=== PATIENT | female | born 1970 | race Caucasian/White ===

== ENCOUNTER → 2018-02-08 07:43 | Outpatient (CLI) | payer OTHER, SELFPAY ==
--- NOTE | 2018-02-08 07:46 | BI_ITS ---
MAMMOGRAPHY - BILATERAL SCREENING REASON FOR EXAM: Female, 47 years old. Routine annual screening examination. PERTINENT HISTORY: Non-contributory. TECHNIQUE: Digital bilateral breast kyrie (3D mammographic acquisition) in the CC and MLO projections. 2-D mediolateral oblique (MLO) and craniocaudad (CC) views of both breasts were obtained. CAD: Full Field Digital Mammography with Computer Added Detection was performed. COMPARISON: Comparison is made with prior examination dated January 16, 2017 and December 31, 2015. FINDINGS: Breast Composition: The breasts are almost entirely fatty. There are no dominant masses or suspicious calcifications. No other significant abnormalities are identified. There has been no significant change since the prior study. BI/SCREENING MAMM (CAD), BILAT IMPRESSION: Stable bilateral screening mammogram. Yearly follow-up mammogram recommended. (A) ASSESSMENT CATEGORY: BIRADS Category 1: Negative. A letter regarding these results will be sent to the patient by the facility within 30 days. Approximately 10% of breast cancers are not detected by mammography. A normal mammogram should not delay biopsy of a clinically suspicious abnormality. [id number] Electronically Signed: Ck Peacock MD at 10:05 EDT Tel [phone], Service support ,
== END ==
PROVIDERS: Family Provider Family Medicine; PCP Family Medicine; Visit Provider Obstetrics & Gynecology
DX: Z12.31 Encounter for screening mammogram for malignant neoplasm of breast (principal)
CPT/HCPCS: 77063; 77067

== ENCOUNTER → 2018-03-10 22:30 | Outpatient (CLI) | payer OTHER, SELFPAY | PROVIDERS: Family Provider Family Medicine; PCP Family Medicine; Visit Provider Clinical Nurse Specialist Acute Care | DX: G47.33 Obstructive sleep apnea (adult) (pediatric) (principal) | CPT/HCPCS: 95811 ==

== ENCOUNTER 2018-03-22 06:44 | Inpatient (IN) | payer OTHER, SELFPAY ==
--- NOTE | 2018-03-17 10:30 | EKG12_ITS ---
Test Reason : PRE-OP Blood Pressure : / mmHG Vent. Rate : 066 BPM Atrial Rate : 066 BPM P-R Int : 140 ms QRS Dur : 086 ms QT Int : 422 ms P-R-T Axes : 057 017 026 degrees QTc Int : 442 ms Normal sinus rhythm Normal ECG Confirmed by FREDERIC MOELLER, JAYA ([id number]), visual effects editor KEREN DE SOUZA ([id number]) on 03/19/2018 1:34:17 PM Referred By: Luis Steen Confirmed By:JAYA DE LA GARZA MD
[2018-03-17 10:58] LABS: Hematocrit 36.7 % (37-47); Hemoglobin 12.2 g/dl (12.0-15.0); Mean Corp Hgb Conc 33.2 g/gl (32-36); Mean Corpuscular Hgb 30.6 pg (27.0-32.0); Mean Platelet Vol. 11.1 fl (6.2-12.0); Platelet Count 289 K/mm3 (150-450); RBC Distribution Width CV 12.7 % (11.6-14.6); Red Blood Count 3.99 M/mm3 (4.2-5.4); Scan Indicated on CBC? Y/N NO; White Blood Count 8.2 K/mm3 (4.4-11.0)
[2018-03-17 11:21] LABS: Anion Gap 7 (5-15); BUN 13 mg/dL (7-18); BUN/Creat Ratio 17.1 RATIO (10-20); Calcium,Total 9.2 mg/dL (8.5-10.1); Chloride 107 mmol/L (98-107); Creatinine, Serum 0.76 mg/dL (0.55-1.02); EST Glomerular Filtration Rate 87 mL/min (>60); Est Glom Filt Rate - Afr Amer 106 mL/min (>60); Glucose 93 mg/dL (74-106); Potassium 4.3 mmol/L (3.5-5.1); Sodium Level 141 mmol/L (136-145)
[2018-03-17 11:25] LABS: Pregnancy, Serum, hCG Quali. NEGATIVE Negative (0-9 Nonpreg)
--- NOTE | 2018-03-21 16:20 | HP.PCM_ITS ---
History and Physical Date of Admission: 03/22/18 Surgical History and Physical Ami Segundo, a 47 year old female 3 0 0 0 3, presents for BRIE/BSO on March 22, 2018 at 8:30. -- Menorrhagia -- Is really tired of this bleeding. Adds she is having a lot of cramping with her bleeding lately and more pain/discomfort on the LLQ. Heavy Prolonged Bleeding which began years ago. Ami claims it started gradually It occurs intermittently. It is located in the vagina.; It is located in the lower abdomen. Ami characterizes the quality cramping.; Ami characterizes the quality clots. Severity is moderate and not improving; Severity is D and C did not help; Additional comments are: D and C late 2015 benign results; small anterior cervix unable to remove uterus vaginally.; Additional comments are: meds not helpful. Prior . MEDICATIONS HISTORY: Current medications prescribed by our practice are: 1. Provera 10 mg tablet, One pill by mouth once a day for 10 days monthly to start menses Patient is also takin. buspirone 10 mg tablet, One pill by mouth three times a day prn 2. Celexa 20 mg tablet, one and a half tabs daily 3. lisinopril 10 mg tablet, One pill by mouth once a day ALLERGIES: NKA Infections - Chicken pox Illnesses - SVT and had heart ablation done 2005 per Varun Accidents - no injuries of consequence Hospitalizations - Childbirth and see surgery Review of Systems: GENERAL - Denies fever, or chills SKIN - Denies skin changes EYES - Denies visual changes EARS - Denies difficulty hearing NOSE - Denies nasal congestion or bleeding MOUTH - Denies sore throat or difficulty swallowing NECK - Denies pain or swelling RESPIRATORY - Denies shortness of breath or wheezing CARDIOVASCULAR - Denies palpitations or chest pain GASTROINTESTINAL - Denies nausea, vomiting, diarrhea, constipation GENITOURINARY - Denies dysuria, frequency of urination, incontinence of urine MUSCULOSKELETAL - Denies joint or muscle pain NEUROLOGICAL - Denies localized numbness or weakness PSYCHIATRIC - Denies depression or anxiety ENDOCRINE - Denies heat or cold intolerance, weight loss or gain HEMATO-IMMUNOLOGIC - Denies excessive bleeding with cuts SOCIAL HISTORY: Alcohol Use - drinks occasionally Smoking - used to smoke but quit and July 2000 Diet - no special diet Lifestyle - moderate stress lifestyle and Exercise - walking Seat Belt Use - always Employer - [employer] Job Description - Work with [employer] s Illicit Drug Use - denies use of street drugs Sexual Activity - Residence - owns a home Place of - Recluse Hours Worked - 40 + Spouse-Sig Other Name - Carroll Spouse-Sig Other Occupation - [employer] Children Name(s) - Jeannette 9, Tenisha 1, Sameer Control - NONE FAMILY HISTORY: Paternal history of Heart Disease. Mother: , Hypertension and Stroke. Maternal Grandmother: adult onset diabetes, diet controlled. MENSTRUAL HISTORY: LMP Known?- YesAmount/Duration - 7 to 10 days, Regularity - heavy, Frequency - monthly days, LMP - 03/06/18, Age Onset Menarche - 14 PAST PREGNANCIES: Total Pregnancies - 3; Full Term Pregnancies - 3; Premature - 0; Abortions, Induced - 0; Abortions, Spontaneous - 0; Ectopics - 0; Multiple Births - 0; Living Children - 3 SURGICAL HISTORY: 1. GALLBLADDER, 1995 ; - 2. , 1993 ; - 3. 11/18/2001 ; Luis Steen M.D. - REPEAT 4. heart cath 2005 ; Dr Farr - 5. 08/04/2003 repeat ; Luis Steen M.D. - 6. 12/24/2011 Lt foot- Plantar Fasciitis ; - 7. 02/04/2016 Hysteroscopy, D and C ; Luis Steen M.D. - PHYSICAL EXAM BP- 136/84 Sitting, Right arm, large cuff Weight- 281.25711 lbs Height- 61 inch BMI:53.21 CONSTITUTIONAL - NAD, well nourished, and well developed SKIN - No rash, lesions, or ulcers HEENT - Normocephalic, PERRLA, EOMI NECK - No nodes, no nuchal rigidity and thyroid normal size and texture LYMPH NODES - Palpation of lymph nodes in neck and groins within normal limits LUNGS - CTA x2 without wheezes, crackles or rales CARDIAC - Regular rate and rhythm without rubs, murmurs, or gallops BREAST - No dominant masses, no tenderness, no axillary adenopathy, no nipple discharge, no skin changes ABDOMEN - Without hepatosplenomegaly, distention, masses, rebound, or guarding; normal bowel sounds; no hernias EXTREMITIES - No edema or calf tenderness NEUROLOGICAL - Cranial nerves II-XII grossly intact PSYCHIATRIC - A and O to time, place, person, mood and affect External Genital Vagina - non-tender without lesions Urethra/Urethral Meatus - non-tender Bladder - non-tender Vagina - redundant vaginal magana. Cervix - without cervical motion tenderness and has normal size and features without evident lesions Uterus - non-diagnostic, limited by abdominal obesity Adnexa - non-diagnostic, limited by abdominal obesity ASSESSMENT/PLAN: Menorrhagia Unresponsive to medical or minor surgical management. Unable to remove via vaginal hysterectomy or perform ablation due to cervical size and location and mobility. Plan to proceed with BRIE/BSO. Discussed RBAs and all questions answered.
[2018-03-22] VITALS (12 sets, daily range): BP systolic 133–162; BP diastolic 67–86; PULSE 60–85; RESP 16–20; TEMP 36.6–37.3; O2SAT 94–100; BMI 51.5; BMI 51.4
--- NOTE | 2018-03-22 | IMM_PTH ---
PATIENT: CARLI MENENDEZ LOC: MS2 U#:[id number] AGE/SX: 47/F ROOM: [facility] [place] RE03/22/[address]: Dr. Luis Steen MD : 1970 BED: 1 DIS: 03/24/2018 SPEC #: [id number] RECD: 03/23/18 13:32 STATUS: JOSIANE REQ #: [id number] NANCY: 03/22/18 00:[address]: Luis Steen DEPT: IMMUNOHISTOCHEMISTRY RECD BY: Brie Klein ENTERED: 03/23/18 13:35 SP TYPE: IMMUNO OTHR DR: Candelaria Rodriguez, [employer] CONTRACTOR-C Tissues: [facility] TISSUE Procedures: Synapto (add) CD56 (add) CHROMO (add) CK20 (add) CK8 (add) KI-67 (add) CK7 (initial) PHYSICIAN & INSTITUTION [place] [id number] SPECIMEN INFORMATION: Tissue Source: Daniel Howell Clinical Info: Menorrhagia Specimen Number: [id number] B1 CPT code: 44689, 71204 x6 METHODOLOGY: Deparaffinized sections of prefer/formalin-fixed tissue or PAP/DQ stained slides are incubated with monoclonal/polyclonal antibodies/oligonucleotide probes. Localization is made via biotin free immunoperoxidase method. Appropriate controls are performed and reacted as expected. Results on target cell population are indicated in the following table: RESULTS: ANTIBODY / CLONE RESULT Block B1 CK7 (OV-TL12/30) negative CK8 (58ouiyG15) positive CK20 (KS20.8) negative CD56 (123C3.D5) positive Chromo (LK2H10) positive Synapto (polyclonal) positive Ki-67 (30-9) 0% These tests were developed and their performance characteristics determined by [facility]. They may not have been cleared or approved by the U.S. Food and Drug Administration. The FDA has determined that such clearance or approval is not necessary. INTERPRETATION: Jenn Lynda: Well differentiated neuroendocrine tumor, carcinoid tumor. SJ:adrian 03/24/18 Case has been reviewed in consultation with Dr. Pedraza who concurs with the above diagnosis. IDC:WILLIE
--- NOTE | 2018-03-22 | HYST_PTH ---
PATIENT: CARLI MENENDEZ LOC: MS2 U#:[id number] AGE/SX: 47/F [place] [facility] [place] RE03/22/[address]: Dr. Luis Steen MD : 1970 BED: 1 DIS: 03/24/2018 SPEC #: [id number] RECD: 03/22/18 14:38 STATUS: JOSIANE RETam #: [id number] NANCY: 03/22/18 00:[address]: Luis Steen DEPT: SURGICAL PATHOLOGY RECD BY: Scott Apple ENTERED: 03/22/18 14:39 SP TYPE: HYSTERECT OTHR DR: SANDY Matt Tissues: A - Uterus, NOS B - FOREIGN BODY Procedures: Surgery Specimen Level V HEADER OPERATION: Total abdominal hysterectomy, bilateral salpingo-oophorectomy PRE-OP DIAGNOSIS: Menorrhagia TISSUE SUBMITTED: A - Uterus, bilateral fallopian tubes, bilateral ovaries, cervix, B - Fecalith MICROSCOPIC DIAGNOSIS A. Uterus, bilateral fallopian tubes and bilateral ovaries, total abdominal hysterectomy and bilateral salpingo-oophorectomy: Cervix - no pathologic diagnosis. See comment. Endometrium - proliferative endometrium. Myometrium - adenomyosis. Bilateral fallopian tubes - no pathologic diagnosis. Bilateral ovaries - physiologic corpus luteum and follicular cysts. Left paratubal cyst. B. Fecalith: Carcinoid tumor. See comment. Fragment of fallopian tubes, no pathologic diagnosis. A piece of adipose tissue, no pathologic diagnosis. SJ:adrian 03/23/18 COMMENT A. Ectocervical mucosa is not seen. B. Immunohistochemistry ([id number]) supports the above diagnosis. Grossly identified an elongated piece of tissue shows colonic mucosa and is consistent with portion of appendix. The carcinoid tumor involves this portion of the specimen and measures approximately 2.5 to 3.0 in greatest length. The tumor involves the full thickness of appendix and obliterating the lumen and also extends into the periappendiceal tissue. No lymph node tissue is indentified in the adipose tissue submitted. Clinical correlation and appropriate follow up are necessary. This case is discussed with Dr. Steen on 03/23/18. This case is discussed with Dr. Lemon on 03/24/08. Case has been reviewed in consultation with Dr. Pedraza who concurs with the above diagnosis. IDC:AM MICROSCOPIC DESCRIPTION Slides are reviewed. GROSS DESCRIPTION A - Received in fixative is one container labeled with the patient's name and designated uterus, cervix, bilateral tubes and ovaries. The specimen consists of a hysterectomy specimen consisting of uterus, cervix, attached bilateral fallopian tubes and bilateral ovaries. The uterus with cervix weighs 135 gm and measures 11.5 x 7 x 6 cm. The serosal surface is onofre, glistening. Obvious ectocervical mucosa is not seen. The external os is slit-like in contour. The endocervical canal measures 5 cm in length and the endocervical mucosa is onofre, glistening and unremarkable. The triangular endometrial cavity measures 5.5 cm in length and up to 3.5 cm in width. The endometrium is congested without any mass lesion and measures 0.1 cm in thickness. Sections of the myometrial wall do not reveal any mass lesion and measures up to 3 cm in thickness. The right fallopian tube measures up to 9.5 cm in length and 0.7 cm in diameter. Focal tubo-ovarian adhesions are noted. The fimbrial end is identified. The soft to cystic right ovary measures 4 x 3 x 3 cm. Sections reveal a solid, onofre-yellowish area measuring 2.5 x 2 x 2.5 cm. A hemorrhagic cyst is also noted measuring 2 cm in greatest dimension. A few cysts are also present filled with clear fluid. The left fallopian tube measures 7 cm in length and up to 0.6 cm in diameter. The fimbrial end is identified. Tubo-ovarian adhesions are not seen. Sections reveal unremarkable cut surfaces. A paratubal cyst is noted measuring 0.5 cm in greatest dimension. The soft to cystic left ovary measures 3 x 3 x 2.5 cm. Sections reveal a cyst filled with clear fluid measuring 2 cm in greatest dimension. A focal onofre-yellowish area is also noted measuring 3 cm in greatest dimension. Multiple corpora lesions are noted in this area. Bridal Sales Consultant sections are submitted in 12 cassettes as follows: 1 - anterior cervix, 2 - posterior cervix, 3 & 4 - anterior uterine wall, 5 & 6 - posterior uterine wall, 7 - right fallopian tube and ovary, 8 & 9 - more sections of right ovary, 10 - left fallopian tube, 11 & 12 - left ovary. B - Received in fixative is one container labeled with the patient's name and designated fecalith. The specimen consists of an elongated piece of onofre soft tissue measuring 4 x 1 x 1 cm. Sections reveal yellowish cut surfaces. Also present in the container are two pieces of onofre-pink soft tissue measuring in aggregate 4.5 x 2 x 1 cm. Sections do not reveal any mass lesion. The entire specimen is submitted in three cassettes. Cassette 1 contains the elongated piece of tissue. / SJ:adrian 03/22/18 TC:1 CPT: 17461 x1, 83310
[2018-03-22 07:12] LABS: Internal QC Validated? YES +Cl - CLEAR BKGD; Pregnancy, Urine Negative Negative
--- NOTE | 2018-03-22 08:47 | PCM.OP.BLANK ---
Operative Report Date of Procedure: 03/22/18 Surgeon: Luis Steen MD, [facility] Associate Product Integrity Engineer: HALLE Esparza Anesthesia: Sarahi Bee MD; Tomy Cutler CRNA Type of anesthesia: General endotracheal Pre-operative Diagnosis: Menorrhagia, Unfavorable Pelvis for Vaginal Hysterectomy Post-operative Diagnosis: Menorrhagia, Unfavorable Pelvis for Vaginal Hysterectomy, Adhesions Procedure: Total Abdominal Hysterectomy, Bilateral Salpingo-Oophorectomy; Lysis of Adhesions Findings: 8 cm cm uterus with normal appearing fallopian tubes and ovaries; dense adhesions of uterus to anterior abdominal wall, dense adhesions of omentum to right pelvic sidewall and anterior abdominal wall, 2 cm omental fecalith (removed). Indications: This is a 47-year-old patient who his been having problems with extremely heavy periods. The patient's cervix is extremely small and high in the vagina with D&C in the past extremely difficult. Robotic surgery likely not possible. Given this the patient desires that we proceed with the above procedure. She has been counseled regarding the risk and indications of this procedure including the possibility of bleeding, infection, and injury to surrounding structures such as bowel bladder. All questions were answered. Procedure: Patient was taken to the operating room where after induction of general anesthesia she was prepped and draped in the usual sterile fashion. A Thomson catheter was placed. The abdomen was entered through a Pfannenstiel incision and peritoneal cavity was entered bluntly. Dense omental adhesions were encountered. [place] retractor was placed. Round ligaments were identified and ligated with 0 Vicryl suture. Infundibulopelvic ligaments were ligated x2. A bladder flap was developed with extensive adhesiolysis performed and progressive bites were then taken down on either side of the uterine cervix ligating each pedicle with 0 Vicryl suture. Final bites across the vaginal cuff incorporated the uterosacral ligaments into the vaginal cuff using 0 Vicryl suture and a single [id number] suture was placed across the vaginal cuff. Vaginal cuff and pelvic sidewall pedicles were oversewn where necessary to achieve hemostasis. Clear yellow urine was noted. Retractor was removed and omental adhesions were taken down ligating where necessary with 0 Vicryl suture. Retractor was replaced and pelvis was copiously irrigated with saline. FloSeal was placed across the anterior vaginal cuff to help with postoperative hemostasis due to some oozing in this area. Danay retractor was again removed and rectus abdominis muscles were reapproximated in the midline with interrupted 0 Vicryl suture. 0 PDS loop suture was used to close the fascia in a running fashion and subcutaneous tissue was copiously irrigated with saline solution before closing with 3-0 Vicryl suture. 3-0 Monocryl suture was then used in running fashion to reapproximate skin edges area and Steri-Strips placed across the incision. Patient tolerated the procedure well was taken to recovery room in satisfactory condition; sponge instrument and needle counts were all reportedly correct. Estimated blood loss for the case was less than 100 cc. Cefotan 3 g IV was given prior to beginning the operative procedure. There were no apparent complications of the surgery. Specimen to pathology was uterus and bilateral fallopian tubes and ovaries; fecalith.
--- NOTE | 2018-03-22 08:50 | OP.PCM_ITS ---
Operative Report Date of Procedure: 03/22/18 Surgeon: Luis Steen MD, [facility] Commercial Relationship Manager: HALLE Esparza Anesthesia: Sarahi Bee MD; Tomy Cutler CRNA Type of anesthesia: General endotracheal Pre-operative Diagnosis: Menorrhagia, Unfavorable Pelvis for Vaginal Hysterectomy Post-operative Diagnosis: Menorrhagia, Unfavorable Pelvis for Vaginal Hysterectomy, Adhesions Procedure: Total Abdominal Hysterectomy, Bilateral Salpingo-Oophorectomy; Lysis of Adhesions Findings: 8 cm cm uterus with normal appearing fallopian tubes and ovaries; dense adhesions of uterus to anterior abdominal wall, dense adhesions of omentum to right pelvic sidewall and anterior abdominal wall, 2 cm omental fecalith (removed). Indications: This is a 47-year-old patient who his been having problems with extremely heavy periods. The patient's cervix is extremely small and high in the vagina with D&C in the past extremely difficult. Robotic surgery likely not possible. Given this the patient desires that we proceed with the above procedure. She has been counseled regarding the risk and indications of this procedure including the possibility of bleeding, infection, and injury to surrounding structures such as bowel bladder. All questions were answered. Procedure: Patient was taken to the operating room where after induction of gen eral anesthesia she was prepped and draped in the usual sterile fashion. A Thomson catheter was placed. The abdomen was entered through a Pfannenstiel incision and peritoneal cavity was entered bluntly. Dense omental adhesions were encountered. Danay retractor was placed. Round ligaments were identified and ligated with 0 Vicryl suture. Infundibulopelvic ligaments were ligated x2. A bladder flap was developed with extensive adhesiolysis performed and progressive bites were then taken down on either side of the uterine cervix ligating each pedicle with 0 Vicryl suture. Final bites across the vaginal cuff incorporated the uterosacral ligaments into the vaginal cuff using 0 Vicryl suture and a single [id number] suture was placed across the vaginal cuff. Vaginal cuff and pelvic sidewall pedicles were oversewn where necessary to achieve hemostasis. Clear yellow urine was noted. Retractor was removed and omental adhesions were taken down ligating where necessary with 0 Vicryl suture. Retractor was replaced and pelvis was copiously irrigated with saline. FloSeal was placed across the anterior vaginal cuff to help with postoperative hemostasis due to some oozing in this area. [place] retractor was again removed and rectus abdominis muscles were reapproximated in the midline with interrupted 0 Vicryl suture. 0 PDS loop suture was used to close the fascia in a running fashion and subcutaneous tissue was copiously irrigated with saline solution before closing with 3-0 Vicryl suture. 3-0 Monocryl suture was then used in running fashion to reapproximate skin edges area and Steri-Strips placed across the incision. Patient tolerated the procedure well was taken to recovery room in satisfactory condition; sponge instrument and needle counts were all reportedly correct. Estimated blood loss for the case was less than 100 cc. Cefotan 3 g IV was given prior to beginning the operative procedure. There were no apparent complications of the surgery. Specimen to pathology was uterus and bilateral fallopian tubes and ovaries; fecalith.
--- NOTE | 2018-03-22 08:50 | PCM.DC.AHY ---
Discharge Diet: No Restrictions Discharge Activity: Return to Normal Activity - do what you feel comfortable, but do not over do it. You may climb stairs, just use caution and hold the railing., May Not Drive - for a few days or while taking narcotic pain medications., May Shower, May Take a Tub Bath May resume sexual activity in: 6 weeks - nothing in the vagina. Lifting Restrictions: 25 pounds for 6 weeks. Call your doctor if your incision/area has: Continuous Slow Oozing, Sudden Increased Bleeding, Increased Pain/ Swelling, Increased Redness, Foul Smelling Discharge Call your doctor if you observe: Fever of 101 or Higher, Inability to urinate, Inability to have a bowel movement, Using more than one pad per hour, - - Some vaginal bleeding may be noted for up to 4-8 weeks. Cleanse incision/area with: - - Let the soapy water run over your incision, rinse and pat dry. Additional Dressing/Incision Instructions:: The white strips (Steri Strips) on your incision will fall off on their own. Allergies/Adverse Reactions: Allergies No Known Allergies Allergy (Verified 03/15/18 11:05) Medications to take at Discharge Buspirone HCl [Buspar] 10 mg PO TID PRN PRN 12/21/15 Lisinopril 10 mg PO QHS 12/21/15 Citalopram Hydrobromide [Celexa] 30 mg PO QHS 03/15/18 Docusate Sodium [Colace] 100 mg PO BID PRN PRN #60 cap 03/22/18 Estradiol 1 mg PO DAILY #100 tab 03/22/18 Oxycodone [Oxyir] 5 mg PO Q6H PRN PRN 7 Days #20 tab 03/22/18 The following prescriptions were given: Oxycodone [Oxyir] 5 mg PO Q6H PRN PRN 7 Days #20 tab PRN Reason: Severe Pain (-03/03) Docusate Sodium [Colace] 100 mg PO BID PRN PRN #60 cap PRN Reason: Constipation Estradiol 1 mg PO DAILY #100 tab Orders to be completed after discharge: 12 Lead EKG [[facility]] Time Frame: 03/17/18, Location: None Selected Basic Metabolic Profile (BMP) Time Frame: 03/17/18, Location: Laboratory Primary Care Physician: Rodriguez,Candelaria, MEN'S LOCKER ROOM ATTENDANT-C [Primary Care Provider] - Test Results: Test results from this visit will be discussed in further detail at your follow-up appointment, if applicable. Please Follow Up With: Luis Steen MD - [phone] When: in 2 weeks, please call to make an appointment.
[2018-03-22] MEDS: Ketorolac 30 MG/ML Syringe IV ×3 (12:44→22:57)
[2018-03-22] MEDS: Ondansetron 4 MG/2 ML Vial IV ×2 (14:34→18:34)
[2018-03-22] MEDS: Lactated Ringers 1,000 ML 125 ML IV ×2 (14:44→22:57)
[2018-03-22] MEDS: HYDROmorphone 0.5 MG/0.5 ML SYRINGE IV (15:27)
[2018-03-22] MEDS: Estrogens,Conj. 0.625 MG Tablet PO (18:36)
[2018-03-22] MEDS: Enoxaparin 40 MG/0.4 ML Syringe SC (18:40)
[2018-03-22] MEDS: HYDROmorphone 1 MG/ML Syringe IV (19:58)
[2018-03-22] MEDS: Citalopram 10 MG Tablet 30 MG PO (22:57)
[2018-03-22] MEDS: Lisinopril 10 MG Tablet PO (22:58)
[2018-03-23] MEDS: HYDROmorphone 0.5 MG/0.5 ML SYRINGE IV (01:33)
[2018-03-23 03:49] VITALS: BP 120/50; PULSE 85; RESP 16; TEMP 37.1; O2SAT 98
[2018-03-23] MEDS: Ketorolac 30 MG/ML Syringe IV ×4 (05:47→23:56)
--- NOTE | 2018-03-23 05:54 | NURSING ---
Berto garcia @ 0553 on 03/23
[2018-03-23] MEDS: oxyCODONE 5 MG Tablet PO ×4 (07:19→20:58)
[2018-03-23 08:02] LABS: Hematocrit 26.2 % (37-47); Hemoglobin 8.6 g/dl (12.0-15.0); Mean Corp Hgb Conc 32.8 g/gl (32-36); Mean Corpuscular Hgb 30.9 pg (27.0-32.0); Mean Corpuscular Volume 94.2 fL (81-99); Mean Platelet Vol. 10.9 fl (6.2-12.0); Platelet Count 245 K/mm3 (150-450); RBC Distribution Width CV 12.6 % (11.6-14.6); RBC Distribution Width SD 41.2 fl (35.1-43.9); Red Blood Count 2.78 M/mm3 (4.2-5.4); White Blood Count 9.1 K/mm3 (4.4-11.0)
[2018-03-23 08:03] LABS: Scan Indicated on CBC? Y/N NO
[2018-03-23 08:25] LABS: Creatinine, Serum 0.81 mg/dL (0.55-1.02); EST Glomerular Filtration Rate 81 mL/min (>60); Est Glom Filt Rate - Afr Amer 98 mL/min (>60); Estimated Creatinine Clearance 69.37 ml/min
--- NOTE | 2018-03-23 08:40 | PCM.PN.OB ---
Subjective: Patient without complaints. Tolerating diet. Denies flatus. Pain well controlled. Wants to go home later today if possible. - Physical Exam Vital Signs AF, VSS Temp Pulse Resp BP Pulse Ox 98.8 F 85 16 120/50 L 98 03/23/18 03:49 03/23/18 03:49 03/23/18 03:49 03/23/18 03:49 03/23/18 03:49 Oxygen Flow Rate (L/min) 2 Oxygen Delivery Method Nasal Cannula Weight: 281 lb Body Mass Index (BMI) 51.4 Intake and Output for Last 24 Hours 03/21/18 03/22/18 03/23/18 23:59 23:59 23:59 Intake Total 3268 / 3268 1147 / 1147 Output Total 900 / 900 1150 / 1150 Balance 2368 / 2368 -3 / -3 Laboratory Tests Past 24 Hrs 03/23/18 03/23/18 07:30 07:30 WBC 9.1 RBC 2.78 L Hgb 8.6 L Hct 26.2 L MCV 94.2 MCH 30.9 MCHC 32.8 RDW 12.6 RDW Differential 41.2 Plt Count 245 MPV 10.9 Creatinine 0.81 Estim Creat Clear Calc 69.37 Est GFR (MDRD) Af Amer 98 Est GFR (MDRD) Non-Af 81 Wound is clean, dry, intact. Good urine output. Minimal to no vaginal bleeding. Creatinine okay. Hemoglobin okay. Medical Necessity - Tobacco Use Smoking Status: Former smoker Assessment/Plan Doing well postoperative day #1 status post BRIE/BSO. Home-going instructions given in anticipation of possible discharge later today. Otherwise, continuing present care.
[2018-03-23 09:18] VITALS: BP 108/47; PULSE 82; RESP 16; TEMP 37.2; O2SAT 93
[2018-03-23] MEDS: Acetaminophen 500 MG Tablet 1000 MG PO (09:37)
[2018-03-23] MEDS: Estrogens,Conj. 0.625 MG Tablet PO (09:39)
[2018-03-23] MEDS: 0.9% NaCl Peripheral Flush Adult/Peds IV ×3 (11:28→23:56)
[2018-03-23 15:14] VITALS: BP 124/61; PULSE 83; RESP 16; TEMP 37.2; O2SAT 94
[2018-03-23 20:37] VITALS: BP 121/61; PULSE 93; RESP 18; TEMP 36.8; O2SAT 96
[2018-03-23] MEDS: Lisinopril 10 MG Tablet PO (20:59)
[2018-03-23] MEDS: Citalopram 10 MG Tablet 30 MG PO (21:00)
[2018-03-24 03:20] VITALS: BP 109/59; PULSE 79; RESP 16; TEMP 36.8; O2SAT 97
[2018-03-24] MEDS: oxyCODONE 5 MG Tablet PO (03:26)
[2018-03-24 05:49] LABS: Absolute Lymphocyte Count 2.16 X10^3/ul (0.83-4.51); Absolute Neutrophil Count 5.6 X10^3/uL (2.0-7.7); Basophil# 0.03 X10^3/uL; Basophil% 0.3 % (0-1); Eosinophils% 1.1 % (0-5); Hematocrit 24.6 % (37-47); Hemoglobin 7.9 g/dl (12.0-15.0); Lymphocyte # 2.16 X10^3/ul (4.0); Lymphocyte % 24.1 % (19-41); Mean Corp Hgb Conc 32.1 g/gl (32-36); Mean Corpuscular Hgb 30.3 pg (27.0-32.0); Mean Corpuscular Volume 94.3 fL (81-99); Mean Platelet Vol. 10.8 fl (6.2-12.0); Monocyte% 11.1 % (0-10); Neutrophil # 5.63 X10^3/uL (2.7-7.7); Neutrophil % 62.7 % (47-70); Platelet Count 230 K/mm3 (150-450); RBC Distribution Width CV 12.8 % (11.6-14.6); RBC Distribution Width SD 42.4 fl (35.1-43.9); Red Blood Count 2.61 M/mm3 (4.2-5.4)
[2018-03-24] MEDS: Ketorolac 30 MG/ML Syringe IV (06:04)
[2018-03-24] MEDS: 0.9% NaCl Peripheral Flush Adult/Peds IV (06:04)
[2018-03-24 06:17] LABS: POSITIVE COUNT NO; POSITIVE DIFFERENTIAL NO; POSITIVE MORPHOLOGY NO
[2018-03-24 07:00] VITALS: O2SAT 97
--- NOTE | 2018-03-24 09:18 | PCM.PN.OB ---
Subjective: Patient without complaints. Tolerating diet well. Positive flatus. Dr. 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 She plans to see him in the office in 1-2 weeks for further plans on management. - Physical Exam Vital Signs AF, VSS Temp Pulse Resp BP Pulse Ox 98.3 F 79 16 109/59 L 97 03/24/18 03:20 03/24/18 03:20 03/24/18 03:20 03/24/18 03:20 03/24/18 07:00 Oxygen Flow Rate (L/min) 2 Oxygen Delivery Method Nasal Cannula Weight: 281 lb Body Mass Index (BMI) 51.4 Intake and Output for Last 24 Hours 03/22/18 03/23/18 03/24/18 23:59 23:59 23:59 Intake Total 3268 / 3268 3097 / 3097 440 / 440 Output Total 900 / 900 2400 / 2400 1450 / 1450 Balance 2368 / 2368 697 / 697 -1010 / -1010 Laboratory Tests Past 24 Hrs 03/24/18 05:15 WBC 9.0 RBC 2.61 L Hgb 7.9 L Hct 24.6 L MCV 94.3 MCH 30.3 MCHC 32.1 RDW 12.8 RDW Differential 42.4 Plt Count 230 MPV 10.8 Immature Gran % (Auto) 0.700 Neut % (Auto) 62.7 Lymph % (Auto) 24.1 [place] % (Auto) 11.1 H Eos % (Auto) 1.1 Baso % (Auto) 0.3 Absolute Neuts (auto) 5.6 Absolute Lymphs (auto) 2.16 Total Counted Not Reportable Wound is clean, dry, intact. Excellent urine output. Hemoglobin stable with diuresis. Medical Necessity - Tobacco Use Smoking Status: Former smoker Assessment/Plan Doing well postoperative day #2 status post BRIE/BSO for menorrhagia and incidental carcinoid tumor of appendix. Patient to follow-up with Dr. Lemon in 1-2 weeks and with our office in approximately 2 weeks for an incision check. Home-going instructions were given.
[2018-03-24 09:41] VITALS: BP 125/58; PULSE 70; RESP 16; TEMP 36.9; O2SAT 100
--- NOTE | 2018-03-24 10:00 | CASEMGMT ---
ANKUR CAMPBELL INITIAL ASSESSMENT D/C PLAN: Return home with support of . Face to Face with patient for initial transition planning/care coordination assessment. ANKUR CAMPBELL introduced self and role at [facility]. Care providers, pharmacy, and demographics verified. PCP: Candelaria Rodriguez NP Specialists: To F/U with Dr Lemon in 1-2 wks for carcinoid tumor of omental lesion Preferred Pharmacy: [facility] Insurance: [employer] Living Will/HPOA: Does not have either LW or HPOA. Declines further information. LNOK: Living Arrangements: Lives with . Transportation: Pt drives. DME: Denies currently using any DME. Just had sleep apnea testing done and states should be getting a Bipap in the next couple weeks. Declines needing supplemental O2 @ HS in the interim. HHC: No needs identified. CM to follow for any further discharge planning needs that may arise. Wolfgang MENAN ANKUR CAMPBELL
[2018-03-24] MEDS: Estrogens,Conj. 0.625 MG Tablet PO (10:28)
--- NOTE | 2018-03-24 15:40 | CON.PCM_ITS ---
Problem List (1) Carcinoid tumor of appendix Status: Acute Reason for Consult Date of Consultation: 03/24/18 History of Present Illness: The patient is a 47 year old F who recently underwent a total abdominal hysterectomy and bilateral salpingo-oophorectomy for menorrhagia. During the procedure the presumptive fecalith was removed. 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 It measured approximately 2.5 cm in its greatest diameter. She is currently recovering quite well tolerating a diet and her pain is improving. I have been consulted for further workup and evaluation of the carcinoid tumor of the appendix. Past Medical History Allergies No Known Allergies Allergy (Verified 03/15/18 11:05) Home Medications: Ambulatory Orders Medication Instructions Recorded Buspirone HCl [Buspar] 10 mg PO TID PRN PRN 12/21/15 Lisinopril 10 mg PO QHS 12/21/15 Citalopram Hydrobromide [Celexa] 30 mg PO QHS 03/15/18 Docusate Sodium [Colace] 100 mg PO BID PRN PRN #60 cap 03/22/18 Estradiol 1 mg PO DAILY #100 tab 03/22/18 Oxycodone [Oxyir] 5 mg PO Q6H PRN PRN 7 Days #20 tab 03/22/18 Smoking Status: Former smoker - *Family History Maternal History Items: No pertinent history Review of Systems Constitutional: Denies: Chills, Fever, Weight Change Cardiovascular: Denies: Chest Pain, Chest Pressure, Chest Tightness, Palpitations Respiratory: Denies: Cough, Hemoptysis, Shortness of breath at rest, Shortness of breath upon exertion, Wheezing Gastrointestinal: Denies: Abdominal Pain, Constipation, Diarrhea, Hematemesis, Nausea, Melena, Vomiting - Physical Exam Lungs: Clear to auscultation Cardiovascular: Regular rate, Regular Rhythm, No murmurs Abdomen: Bowel Sounds Present, Soft, Non Tender, Non-Distended Vital Signs Temp Pulse Resp BP Pulse Ox 98.4 F 70 16 125/58 H 100 03/24/18 09:41 03/24/18 09:41 03/24/18 09:41 03/24/18 09:41 03/24/18 09:41 Oxygen Flow Rate (L/min) 2 Oxygen Delivery Method Room Air Weight: 281 lb Body Mass Index (BMI) 51.4 Intake and Output for Last 24 Hours 03/22/18 03/23/18 03/24/18 23:59 23:59 23:59 Intake Total 3268 / 3268 3097 / 3097 440 / 440 Output Total 900 / 900 2400 / 2400 1450 / 1450 Balance 2368 / 2368 697 / 697 -1010 / -1010 Laboratory Tests Past 24 Hrs 03/24/18 05:15 WBC 9.0 RBC 2.61 L Hgb 7.9 L Hct 24.6 L MCV 94.3 MCH 30.3 MCHC 32.1 RDW 12.8 RDW Differential 42.4 Plt Count 230 MPV 10.8 Immature Gran % (Auto) 0.700 Neut % (Auto) 62.7 Lymph % (Auto) 24.1 [place] % (Auto) 11.1 H Eos % (Auto) 1.1 Baso % (Auto) 0.3 Absolute Neuts (auto) 5.6 Absolute Lymphs (auto) 2.16 Total Counted Not Reportable Assessment/Plan All Active Problems Carcinoid tumor of appendix (Acute) With this finding of the carcinoid tumor of the appendix the patient is going to have to undergo a CAT scan of her chest abdomen and pelvis at some time. However given all the postoperative changes I do not believe that obtaining this at this admission is probably a good thing. In addition she will more than likely undergo an upper and lower endoscopy. Given the fact that the size of t his was larger than a centimeter this patient at some point is more than likely going to need to undergo a right hemicolectomy. However prior to any surgery I think the workup needs to be more complete. In addition I am more than likely going to probably consult Dr. Lacey from [facility] to see how much of the workup he would like me to do down here prior to me sending her up there for her definitive surgery. I believe this workup can easily be done as an outpatient and I will gladly see this patient 1 week after her discharge.
== END 2018-03-24 10:38 | disposition home or self-care (01) | DRG 742 ==
PROVIDERS: Anesthesiology; Admitting Provider Obstetrics & Gynecology; Family Provider Family Medicine; PCP Family Medicine; Referring Provider Obstetrics & Gynecology; Visit Provider Obstetrics & Gynecology
PROC: 0UT90ZZ Resection of Uterus, Open Approach (ICD-10-PCS; CPT 58150; principal; 2018-03-22 08:10)
DX: N92.0 Excessive and frequent menstruation with regular cycle (principal); C7A.020 Malignant carcinoid tumor of the appendix; N73.6 Female pelvic peritoneal adhesions (postinfective); Z87.891 Personal history of nicotine dependence
CPT/HCPCS: 36415; 80048; 81025; 82565; 84703; 85025; 85027; 86850; 86900; 88300; 88307; 88341; 88342; 93005; J7120; A4216; J2405

== ENCOUNTER 2018-04-14 06:28 | Day surgery (SDC) | payer OTHER, SELFPAY ==
[2018-04-14] VITALS (7 sets, daily range): BP systolic 103–133; BP diastolic 62–81; PULSE 75–86; RESP 16; TEMP 36.5–36.9; O2SAT 94–98; BMI 49.2
--- NOTE | 2018-04-14 | EGD_PTH ---
PATIENT: CARLI MENENDEZ LOC: EN U#:[id number] AGE/SX: 47/F ROOM: RE04/14/[address]: Dr. Kenny Lemon MD : 1970 BED: DIS: 04/14/2018 SPEC #: [id number] RECD: 04/14/18 11:05 STATUS: JOSIANE ADAM #: [id number] NANCY: 04/14/18 00:[address]: Kenny Lemon DEPT: SURGICAL PATHOLOGY RECD BY: Scott Apple ENTERED: 04/14/18 11:06 SP TYPE: EGD BIOPSY OTHR DR: Candelaria Rodriguez, PAN RECLAIM PROCESSOR-C Tissues: A - Gastric fundus B - Sigmoid colon biopsy Procedures: Surgery Specimen Level IV HEADER OPERATION: Colonoscopy, EGD ([facility]) PRE-OP DIAGNOSIS: Carcinoid tumor of appendix TISSUE SUBMITTED: A - Biopsy of fundic polyp, B - Biopsy of sigmoid colon MICROSCOPIC DIAGNOSIS A. Fundic polyp, biopsy: Consistent with fundic gland polyp. See comment. B. Sigmoid colon, biopsy: Fragments of colonic mucosa with a few lymphoid aggregate, favor benign, no pathologic diagnosis. See comment. SJ:rg 04/16/18 COMMENT A. Immunohistochemistry for Helicobacter pylori can be performed if clinically indicated. Please notify the Laboratory if it is needed. B. Immunohistochemistry ([id number]) supports the above diagnosis and negative for carcinoid tumor. Clinical correlation and appropriate follow up are necessary. Please make reference to previous specimen ([id number]) fecalith with diagnosis of carcinoid tumor. MICROSCOPIC DESCRIPTION Slides are reviewed. GROSS DESCRIPTION A - Received in fixative is one container labeled with the patient's name and designated biopsy of fundic polyp. The specimen consists of one irregular fragment of light onofre soft tissue that measures 0.3 x 0.2 x 0.1 cm. The specimen is totally submitted in one cassette. B - Received in fixative is one container labeled with the patient's name and designated biopsy of sigmoid colon. The specimen consists of two irregular fragments of light onofre soft tissue that in aggregate measure 0.8 x 0.6 x 0.1 cm. The specimen is totally submitted in one cassette. / SJ:rg 04/14/18 TC:5 CPT: 94452 x2 ADDENDUM ADDENDUM ADDENDUM ADDENDUM ADDENDUM ADDENDUM ADDENDUM ADDENDUM ADDENDUM ADDENDUM ADDENDUM ADDENDUM ADDENDUM 06/30/2018 14:58 ADDENDUM 06/30/2018 14:58 ADDENDUM 06/30/2018 14:58 ADDENDUM 06/30/2018 14:58 ADDENDUM 06/30/2018 14:58 This addendum is added to incorporate an outside pathology consultation report. The case was examined at [facility] (#[id number]) and the following diagnosis was rendered. A. Fundic polyp, biopsy: Fundic gland polyp. B. Colon, sigmoid biopsy: Colonic mucosa with mild lamina propria hyalinization, otherwise with no specific pathologic findings. Please see complete above mentioned consultation report in EMR
--- NOTE | 2018-04-14 | IMM_PTH ---
PATIENT: CARLI MENENDEZ LOC: EN U#:[id number] AGE/SX: 47/F ROOM: RE04/14/[address]: Dr. Kenny Lemon MD : 1970 BED: DIS: 04/14/2018 SPEC #: [id number] RECD: 04/16/18 14:44 STATUS: JOSIANE REQ #: [id number] NANCY: 04/14/18 00:[address]: Kenny Lemon DEPT: IMMUNOHISTOCHEMISTRY RECD BY: Brie Klein ENTERED: 04/16/18 14:45 SP TYPE: IMMUNO OTHR DR: Candelaria Rodriguez, COMPANY DOCTOR-C Tissues: B - Sigmoid colon biopsy Procedures: Synapto (add) CK8 (initial) CD45 (add) CD56 (add) CHROMO (add) PHYSICIAN & INSTITUTION [place] [address] SPECIMEN INFORMATION: Tissue Source: B - Biopsy of sigmoid colon Clinical Info: Carcinoid tumor of appendix Specimen Number: [id number] CPT code: 46688, 32788 x4 METHODOLOGY: Deparaffinized sections of prefer/formalin-fixed tissue or PAP/DQ stained slides are incubated with monoclonal/polyclonal antibodies/oligonucleotide probes. Localization is made via biotin free immunoperoxidase method. Appropriate controls are performed and reacted as expected. Results on target cell population are indicated in the following table: RESULTS: ANTIBODY / CLONE RESULT Block B CK8 (16gcohR62) negative CD45 (RP2/18) positive CD56 (123C3.D5) negative Synapto (polyclonal) negative Chromo (LK2H10) negative These tests were developed and their performance characteristics determined by [facility]. They may not have been cleared or approved by the U.S. Food and Drug Administration. The FDA has determined that such clearance or approval is not necessary. INTERPRETATION: B. Sigmoid colon, biopsy: Negative for carcinoid tumor. Lymphoid aggregates, favor benign. SJ:adrian 04/16/18
--- NOTE | 2018-04-14 07:59 | OP.ENDO_ITS ---
Patient Name: Michelle Raymond Procedure Date: 04/14/2018 7:30 AM Date of : 1970 Age: 47 Procedure: Upper GI endoscopy Indications: carcinoid appendix Providers: Kenny Lemon MD Referring MD: Kenny Lemon MD Medicines: See the Anesthesia note for documentation of the administered medications Patient Profile: This is a 47 year old female. Refer to note in patient chart for documentation of history and physical. Complications: No immediate complications. Procedure: Pre-Anesthesia Assessment: - Prior to the procedure, a History and Physical was performed, and patient medications and allergies were reviewed. The patient's tolerance of previous anesthesia was also reviewed. The risks and benefits of the procedure and the sedation options and risks were discussed with the patient. All questions were answered, and informed consent was obtained. Prior Anticoagulants: The patient has taken no previous anticoagulant or antiplatelet agents. ASA Grade Assessment: III - A patient with severe systemic disease. After reviewing the risks and benefits, the patient was deemed in satisfactory condition to undergo the procedure. After obtaining informed consent, the endoscope was passed under direct vision. Throughout the procedure, the patient's blood pressure, pulse, and oxygen saturations were monitored continuously. The gastroscope was introduced through the mouth, and advanced to the second part of duodenum. The upper GI endoscopy was accomplished without difficulty. The patient tolerated the procedure well. Scope In: 7:39:15 AM Scope Out: 7:42:59 AM Total Procedure Duration Time 0 hours 3 minutes 44 seconds Findings: The examined esophagus was normal. A few 4 mm sessile polyps with no bleeding and no stigmata of recent bleeding were found in the gastric antrum. The polyp was removed with a jumbo cold forceps. Resection and retrieval were complete. The examined duodenum was normal. Impression: - Normal esophagus. - A few gastric polyps. Resected and retrieved. - Normal examined duodenum. Recommendation: - Await pathology results. - Return to my office in 1 week. - Continue present medications. Procedure Code(s): --- Professional --- 69919, Esophagogastroduodenoscopy, flexible, transoral; with biopsy, single or multiple Diagnosis Code(s): --- Professional --- K31.7, Polyp of stomach and duodenum CPT copyright 2017 [employer]. All rights reserved. The codes documented in this report are preliminary and upon civil draftsman review may be revised to meet current compliance requirements. MD Kenny Bundy MD 04/14/2018 7:58:33 AM This report has been signed electronically. Number of Addenda: 0 Note Initiated On: 04/14/2018 7:30 AM
--- NOTE | 2018-04-14 08:04 | OP.ENDO_ITS ---
Patient Name: Michelle Raymond Procedure Date: 04/14/2018 7:44 AM Date of : 1970 Age: 47 Procedure: Colonoscopy Indications: Malignant carcinoid tumor of the appendix Providers: Kenny Lemon MD Referring MD: Kenny Lemon MD Medicines: See the Anesthesia note for documentation of the administered medications Patient Profile: This is a 47 year old female. Refer to note in patient chart for documentation of history and physical. Last Colonoscopy: none. The patient's first colonoscopy is today. Complications: No immediate complications. Procedure: Pre-Anesthesia Assessment: - Prior to the procedure, a History and Physical was performed, and patient medications and allergies were reviewed. The patient's tolerance of previous anesthesia was also reviewed. The risks and benefits of the procedure and the sedation options and risks were discussed with the patient. All questions were answered, and informed consent was obtained. Prior Anticoagulants: The patient has taken no previous anticoagulant or antiplatelet agents. ASA Grade Assessment: III - A patient with severe systemic disease. After reviewing the risks and benefits, the patient was deemed in satisfactory condition to undergo the procedure. - Prior to the procedure, a History and Physical was performed, and patient medications and allergies were reviewed. The patient's tolerance of previous anesthesia was also reviewed. The risks and benefits of the procedure and the sedation options and risks were discussed with the patient. All questions were answered, and informed consent was obtained. Prior Anticoagulants: The patient has taken no previous anticoagulant or antiplatelet agents. ASA Grade Assessment: III - A patient with severe systemic disease. After reviewing the risks and benefits, the patient was deemed in satisfactory condition to undergo the procedure. After I obtained informed consent, the scope was passed under direct vision. Throughout the procedure, the patient's blood pressure, pulse, and oxygen saturations were monitored continuously. The adult colonoscope was introduced through the anus with the intention of advancing to the cecum. The scope was advanced to the sigmoid colon before the procedure was aborted. Medications were given. The colonoscopy was aborted due to the extreme difficulty of the procedure. Withdrawing and reinserting the scope did not allow for the successful completion of the procedure. Scope In: 7:46:00 AM Scope Out: 7:52:50 AM Total Procedure Duration Time 0 hours 6 minutes 50 seconds Findings: A localized area of mildly friable (with contact bleeding) mucosa was found in the sigmoid colon. Biopsies were taken with a cold forceps for histology. The perianal and digital rectal examinations were normal. Pertinent negatives include no palpable rectal lesions. Impression: - The procedure was aborted due to the extreme difficulty of the procedure. When I got to the Sigmoid colon I hit a brick wall! - Friable (with contact bleeding) mucosa in the sigmoid colon. Biopsied. Recommendation: - Discharge patient to home [Means]. - Perform an air contrast barium enema in 1 day. - Repeat colonoscopy is recommended for surveillance. The colonoscopy date will be determined after pathology results from today's exam become available for review. - Continue present medications. Procedure Code(s): --- Professional --- 54861, 52, Colonoscopy, flexible; with biopsy, single or multiple Diagnosis Code(s): --- Professional --- Z53.8, Procedure and treatment not carried out for other reasons K92.2, Gastrointestinal hemorrhage, unspecified C7A.020, Malignant carcinoid tumor of the appendix CPT copyright 2017 [employer]. All rights reserved. The codes documented in this report are preliminary and upon wood boatbuilder review may be revised to meet current compliance requirements. MD Kenny Bundy MD 04/14/2018 8:03:47 AM This report has been signed electronically. Number of Addenda: 0 Note Initiated On: 04/14/2018 7:44 AM
== END 2018-04-14 09:10 | disposition home or self-care (01) ==
LOC: EN 06:29 → AC 06:30
PROVIDERS: Family Provider Family Medicine; PCP Family Medicine; Referring Provider Surgery; Visit Provider Surgery
PROC: 0DJD8ZZ Inspection of Lower Intestinal Tract, Via Natural or Artificial Opening Endoscopic (ICD-10-PCS; CPT 45378; principal; 2018-04-14 07:40)
DX: K31.7 Polyp of stomach and duodenum (principal); Z53.8 Procedure and treatment not carried out for other reasons; K92.2 Gastrointestinal hemorrhage, unspecified; C7A.020 Malignant carcinoid tumor of the appendix; I10 Essential (primary) hypertension; G47.30 Sleep apnea, unspecified; D64.9 Anemia, unspecified; F41.9 Anxiety disorder, unspecified; K21.9 Gastro-esophageal reflux disease without esophagitis; Z87.19 Personal history of other diseases of the digestive system; Z90.49 Acquired absence of other specified parts of digestive tract; Z79.899 Other long term (current) drug therapy; Z87.891 Personal history of nicotine dependence
CPT/HCPCS: 43239; 45380; 88305; 88341; 88342; J7120

== ENCOUNTER → 2018-04-19 07:49 | Outpatient (CLI) | payer OTHER, SELFPAY ==
[2018-04-14 06:53] VITALS: BMI 49.2
--- NOTE | 2018-04-19 08:25 | RAD_ITS ---
STUDY: BARIUM ENEMA. REASON FOR EXAM: Female, 47 years old. Incomplete colonoscopy. Unable to go past the sigmoid colon. FLUOROSCOPY TIME (if supplied): (1:07) minutes/seconds. 10 images were obtained. TECHNIQUE: Barium was introduced retrograde through the rectum. The entire colon was opacified. COMPARISON: None. FINDINGS: There is no evidence of antegrade or retrograde obstruction to the flow of contrast. There is slight irregularity of the sigmoid colon. There appears to be extrinsic compression of the sigmoid colon. Correlation with hip CT scan of the abdomen and pelvis is recommended for further evaluation. RAD/Barium Enema No Air Cont IMPRESSION: No evidence of obstruction. Irregularity of the sigmoid mucosa with findings suggestive of extrinsic compression on the sigmoid colon. Correlation with a CT scan is recommended. Electronically Signed: Ck Peacock MD at 15:44 EST Tel [phone], Service support ,
== END ==
PROVIDERS: Family Provider Family Medicine; PCP Family Medicine; Referring Provider Surgery; Visit Provider Surgery
DX: Z98.890 Other specified postprocedural states (principal)
CPT/HCPCS: 74270

== ENCOUNTER → 2018-04-30 08:26 | Outpatient (CLI) | payer OTHER, SELFPAY ==
[2018-04-14 06:53] VITALS: BMI 49.2
--- NOTE | 2018-04-30 08:27 | CT_ITS ---
STUDY: CT ABDOMEN AND PELVIS WITH CONTRAST REASON FOR EXAM: Female, 47 years old. 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 Also history of prior cholecystectomy. RADIATION DOSAGE (If Supplied By Facility): CTDIvol = ( 18.74 ) mGy, DLP = ( 1325.04 ) mGycm TECHNIQUE: Transaxial images were obtained from the dome of the diaphragm to the symphysis pubis with oral contrast. 100ML ml of Isovue 300 contrast was administered. Sagittal and coronal images were reconstructed. Individualized dose optimization techniques were used for this CT. COMPARISON: None. FINDINGS: The visualized lung bases are unremarkable. The visualized portions of the heart are within normal limits. There is hepatomegaly, the right lobe measuring just over 20 cm in height. Density of the liver parenchyma difficult to accurately assess after IV contrast. The patent portal vein diameter is 13 mm. There are surgical clips in the gallbladder fossa consistent with a prior cholecystectomy. The diameter of the common bile duct reaches 10 mm. Gas seen in nondependent intrahepatic bile ducts Normal spleen. Normal pancreas. Normal bilateral adrenal glands. Normal right kidney. Normal left kidney. The left pelvicalyceal system is nondistended, but there is [id number] distention of the left ureter down to the pelvic inlet. Normal visualized stomach. Normal small intestine. Normal colon. There is non-visualization of the appendix. There is ill-defined stranding along the inferolateral right anterior peritoneal margin and slight thickening of the inferior rectus muscles that may be postsurgical change. Normal abdominal aorta. 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 Normal retroperitoneum. Normal urinary bladder. There is absence of the uterus consistent with a prior hysterectomy. Rounded 5.3 x 5.4 x 5.0 cm collection consistent with an evolving hematoma seen in the tissues between the upper vaginal cuff and the rectum. This has a fluid-fluid level varying density, consistent with internal layering mildly hyperdense blood. This is adjacent to, possibly communicating with a 2.05 x 2.2 x 1.9 cm low-density fluid pocket adjacent to the left superolateral recess of the vaginal cuff. This borders on a 4.5 x 3.0 x 3.6 cm fluid-filled structure in the medial left lower quadrant that could be yet another hematoma/seroma versus cystic lesion of the left adnexa. There are multilevel degenerative changes of the lower thoracic and mid lumbar spine. Degenerative sclerosis noted along the ilial margins of the bilateral sacroiliac joints. CT/Abdomen/Pelvis WITH Contrast IMPRESSION: 1. Prior hysterectomy. The appendix is not visualized. There are postsurgical changes along the inferolateral right anterior peritoneal margin and low anterior abdominal wall musculature. 2. 5.4 cm evolving hematoma interposed between the upper vaginal cuff in the rectum. This is adjacent to, possibly communicating with a 2.2 cm fluid density along the left superolateral recess of the vaginal cuff. This in turn is in close proximity to a 4.5 cm fluid-filled structure in the medial left lower quadrant, possibly another hematoma/seroma versus cystic left adnexal lesion. One might consider further characterization of these areas with endovaginal ultrasound or MRI. 3. There is distention of the left ureter down to the pelvic inlet, correlating closely to the fluid-filled structure in the medial left lower quadrant. No malignant left pelvocalyceal distention, however. 4. The bowel is otherwise unremarkable without signs of obstruction. 5. Hepatomegaly. 6. Prior cholecystectomy. 7. 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 8. Degenerative changes of the spine and sacroiliac joints. Electronically Signed: Carlito Pimentel MD at 19:52 EST , Service support ,
[2018-04-30 08:40] LABS: EGFR FINGERSTICK > 60.0000 mL/min (>60)
== END ==
PROVIDERS: Family Provider Family Medicine; PCP Family Medicine; Referring Provider Surgery; Visit Provider Surgery
DX: D3A.020 Benign carcinoid tumor of the appendix (principal); R10.9 Unspecified abdominal pain
CPT/HCPCS: 74177; Q9967

== ENCOUNTER 2018-05-21 12:21 | Emergency (ER) | payer OTHER, SELFPAY ==
[2018-04-14 06:53] VITALS: BMI 49.2
[2018-05-21 12:23] VITALS: BP 165/111; PULSE 73; RESP 20; TEMP 36.7; O2SAT 98; BMI 49.4
--- NOTE | 2018-05-21 12:47 | RAD_ITS ---
STUDY: X-RAY - ABDOMEN/PELVIS REASON FOR EXAM: Female, 47 years old TECHNIQUE: COMPARISON: None. FINDINGS: Normal visualized lung bases. There is an unremarkable bowel gas pattern. There is no demonstrated free abdominal air. The visualized liver, spleen and kidneys are grossly normal in size and morphology. Normal. Clips in the upper right upper quadrant from previous cholecystectomy abdominal rickey from recent surgery seen. Changes noted in the right mid abdomen . Normal soft tissue structures. Normal visualized osseous structures. RAD/Abdomen Single View IMPRESSION: Normal x-ray examination of the abdomen and pelvis. Electronically Signed: Mala Naik, at 13:34 EST Tel , Service support ,
[2018-05-21] MEDS: 0.9% Normal Saline 1,000 ML 1000 ML IV (12:57)
[2018-05-21] MEDS: Ondansetron 4 MG/2 ML Vial IV (12:57)
[2018-05-21] MEDS: Morphine 4 MG/ML Syringe IV (12:57)
[2018-05-21 13:01] VITALS: BP 189/106; PULSE 73; RESP 14; TEMP 36.8; O2SAT 98
[2018-05-21 13:07] LABS: Absolute Lymphocyte Count 2.19 X10^3/ul (0.83-4.51); Absolute Neutrophil Count 8.2 X10^3/uL (2.0-7.7); Basophil# 0.04 X10^3/uL; Basophil% 0.4 % (0-1); Eosinophil# 0.05 X10^3/uL; Eosinophils% 0.4 % (0-5); Hematocrit 30.5 % (37-47); Hemoglobin 9.9 g/dl (12.0-15.0); Lymphocyte # 2.19 X10^3/ul (4.0); Lymphocyte % 19.3 % (19-41); Mean Corp Hgb Conc 32.5 g/gl (32-36); Mean Corpuscular Hgb 27.3 pg (27.0-32.0); Mean Platelet Vol. 9.3 fl (6.2-12.0); Monocyte# 0.77 X10^3/uL; Monocyte% 6.8 % (0-10); Neutrophil # 8.21 X10^3/uL (2.7-7.7); Neutrophil % 72.4 % (47-70); POSITIVE COUNT NO; POSITIVE DIFFERENTIAL NO; POSITIVE MORPHOLOGY NO; Platelet Count 390 K/mm3 (150-450); RBC Distribution Width CV 15.9 % (11.6-14.6); Red Blood Count 3.63 M/mm3 (4.2-5.4); White Blood Count 11.3 K/mm3 (4.4-11.0)
[2018-05-21 13:22] LABS: ALB/GLOB Ratio 0.7 RATIO (0.9-2.4); AST(SGOT) 41 U/L (15-37); Alanine Aminotransfer ALT/SGPT 61 U/L (13-56); Albumin, Serum 3.1 g/dL (3.2-5.0); Alkaline Phosphatase 108 U/L (45-117); Anion Gap 11 (5-15); BUN 6 mg/dL (7-18); BUN/Creat Ratio 9.4 RATIO (10-20); Calcium,Total 9.2 mg/dL (8.5-10.1); Chloride 103 mmol/L (98-107); Creatinine, Serum 0.64 mg/dL (0.55-1.02); EST Glomerular Filtration Rate 107 mL/min (>60); Est Glom Filt Rate - Afr Amer 130 mL/min (>60); Estimated Creatinine Clearance 87.79 ml/min; Globulin 4.3 g/dL (2.2-4.2); Glucose 103 mg/dL (74-106); Lipase 100 U/L (73-393); Potassium 3.3 mmol/L (3.5-5.1); Protein, Total 7.4 g/dL (6.4-8.2); Sodium Level 140 mmol/L (136-145)
[2018-05-21 13:35] LABS: Bacteria 0 SEEN /hpf (None Seen); Color, Urine Yellow (Yellow); Glucose, Dipstick Normal (Normal); Ketone-Dipstick 15 mg/dl (Negative); Leukocyte Esterase-Dipstick Negative /ul (Negative); Mucous, Urine 0 SEEN /hpf (<or=2+); Nitrite-Dipstick Negative (Negative); Occult Blood-Urine Negative /ul (Negative); Protein-Dipstick Negative (Negative); Red Blood Cells-Urine 0 SEEN /hpf (0-5); Urine Bilirubin Dipstick Negative (Negative); Urine Clarity Sl. Cloudy (Clear); Urine Urobilinogen Normal (Normal); White Blood Cells 0 SEEN /hpf (0-5)
[2018-05-21 13:43] LABS: Squamous Epithelial Cells - UA 5-10 SEEN /hpf (5-10)
--- NOTE | 2018-05-21 14:27 | NURSING ---
CALLED FOR DR DONNELL GONCALVES, COLRECTAL SURGEON. LEFT MESSAGE. HE IS OUT OF OFFICE
[2018-05-21 14:44] VITALS: BP 206/83; PULSE 71; O2SAT 98
[2018-05-21] MEDS: hydrALAZINE 20 MG/ML Vial 10 MG IV (14:50)
--- NOTE | 2018-05-21 14:52 | ED.VISSUMM ---
- ER Visit Summary Date of Service: 05/21/18 Chief Complaint: Nausea and vomiting History of Present Illness: The patient is a 47 F with nausea and vomiting. The patient has a comp located medical history. At the end of February she had a hysterectomy by Dr. Steen. 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 She had this resected at , and it sounds like it was complicated by a bowel perforation. She did have a colostomy placed and plans have a reversal in the future. She was discharged earlier this week for review H. She has been dealing with nausea and vomiting. This has been going on since yesterday. She has dry heaves or vomiting about every 2 hours. She was seen at an outside hospital yesterday and had a CT that showed postoperative changes, chronic findings, and some incidental findings, but no apparent complications from the surgery. No signs of obstruction. She was prescribed Zofran and Phenergan and sent home from the emergency department. She has had continued nausea and vomiting. She was unable to take her lisinopril today. Her home health aide found her to be hypertensive and referred her to the emergency department. Physical Examination: Patient is hypertensive at 165/111. Otherwise vital signs are unremarkable. Afebrile. The patient appears uncomfortable but not in distress. Heart regular. Lungs clear. Abdomen mildly distended but nontender. She has hyperactive bowel sounds. Skin appears normal. Test Results: White count 11.3 and hemoglobin 9.9. Potassium 3.3 and BUN 6. ALT 61 and AST 41. Lipase normal. Urinalysis shows signs of contamination. X-ray of her abdomen was normal. No obstruction pattern noted. Emergency Department Course and Treatment: Patient was treated with fluids, Zofran, and morphine. I was able to review her CAT scan from yesterday via [facility]. I did not find an indication to repeat that emergently. I did check a KUB to make sure she did not have an obstructive pattern, and this was normal. I rechecked her labs. They were all fairly unremarkable. Nausea and vomiting resolved and she was requesting fluids to drink. I believe her blood pressure is elevated from not taking today. I reevaluated her pressures and they were higher. Patient was treated with hydralazine. Will reassess. I paged her surgeon, Dr. Dax Olmedo at . Dr. Brush called back. The patient had a complicated surgery. She had multiple ED visits. She is not doing well at home. She is having nausea and vomiting. He is not able to take her blood pressure medications. She felt that the patient could benefit from admission. I spoke with the patient who is agreeable to transfer to . Treatment Plan: As above Disposition: Transfer to Impression: Nausea and vomiting Hypertension This note was generated with [employer] dictation software. It may contain incorrect words, spelling, and punctuation that were not noted in review of the chart prior to signing ED Disposition - Plan for ED Patient: Chief Complaint: Nausea/Vomiting Referrals: Candelaria Rodriguez, TREMAINE-C [Primary Care Provider] -
--- NOTE | 2018-05-21 14:56 | ED.DCSUM_ITS ---
- ER Visit Summary Date of Service: 05/21/18 Chief Complaint: Nausea and vomiting History of Present Illness: The patient is a 47 F with nausea and vomiting. The patient has a comp located medical history. At the end of February she had a hysterectomy by Dr. Steen. 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 She had this resected at , and it sounds like it was complicated by a bowel perforation. She did have a colostomy placed and plans have a reversal in the future. She was discharged earlier this week for review H. She has been dealing with nausea and vomiting. This has been going on since yesterday. She has dry heaves or vomiting about every 2 hours. She was seen at an outside hospital yesterday and had a CT that showed postoperative changes, chronic findings, and some incidental findings, but no apparent complications from the surgery. No signs of obstruction. She was prescribed Zofran and Phenergan and sent home from the emergency department. She has had continued nausea and vomiting. She was unable to take her lisinopril today. Her home health aide found her to be hypertensive and referred her to the emergency department. Physical Examination: Patient is hypertensive at 165/111. Otherwise vital signs are unremarkable. Afebrile. The patient appears uncomfortable but not in distress. Heart regular. Lungs clear. Abdomen mildly distended but nontender. She has hyperactive bowel sounds. Skin appears normal. Test Results: White count 11.3 and hemoglobin 9.9. Potassium 3.3 and BUN 6. ALT 61 and AST 41. Lipase normal. Urinalysis shows signs of contamination. X- ray of her abdomen was normal. No obstruction pattern noted. Emergency Department Course and Treatment: Patient was treated with fluids, Zofran, and morphine. I was able to review her CAT scan from yesterday via [facility]. I did not find an indication to repeat that emergently. I did check a KUB to make sure she did not have an obstructive pattern, and this was normal. I rechecked her labs. They were all fairly unremarkable. Nausea and vomiting resolved and she was requesting fluids to drink. I believe her blood pressure is elevated from not taking today. I reevaluated her pressures and they were higher. Patient was treated with hydralazine. Will reassess. I paged her surgeon, Dr. Dax Olmedo at . Dr. Brush called back. The patient had a complicated surgery. She had multiple ED visits. She is not doing well at home. She is having nausea and vomiting. He is not able to take her blood pressure medications. She felt that the patient could benefit from admission. I spoke with the patient who is agreeable to transfer to . Treatment Plan: As above Disposition: Transfer to Impression: Nausea and vomiting Hypertension This note was generated with [employer] dictation software. It may contain incorrect words, spelling, and punctuation that were not noted in review of the chart prior to signing ED Disposition - Plan for ED Patient: Chief Complaint: Nausea/Vomiting Referrals: Candelaria Rodriguez, TREMAINE-C [Primary Care Provider] -
--- NOTE | 2018-05-21 15:08 | NURSING ---
AT WANTS PATIENT TRANSFERRED.
[2018-05-21 16:35] VITALS: BP 178/75; PULSE 73; RESP 16; O2SAT 98
[2018-05-21] MEDS: Acetaminophen 500 MG Tablet 1000 MG PO (17:12)
--- NOTE | 2018-05-21 17:48 | NURSING ---
[address] [address] REPORT NUMBER [phone]
--- NOTE | 2018-05-21 17:58 | NURSING ---
CALLED [facility] FOR TRANSPORT. ETA HALF HOUR
[2018-05-21 18:13] VITALS: BP 173/64; PULSE 84; RESP 16; O2SAT 95
[2018-05-21 18:27] VITALS: BP 173/64; PULSE 84; RESP 16; O2SAT 98
== END 2018-05-21 18:28 | disposition short-term general hospital (02) ==
PROVIDERS: Emergency Provider Emergency Medicine; Family Provider Family Medicine; PCP Family Medicine
DX: R11.2 Nausea with vomiting, unspecified (principal); I10 Essential (primary) hypertension; R10.13 Epigastric pain; Z87.898 Personal history of other specified conditions; Z90.49 Acquired absence of other specified parts of digestive tract; Z90.710 Acquired absence of both cervix and uterus; Z79.899 Other long term (current) drug therapy; Z87.891 Personal history of nicotine dependence
CPT/HCPCS: 74018; 80053; 81001; 83690; 85025; 96361; 96374; 96375; 99284; J7030; A4216; J2405

== ENCOUNTER → 2019-02-18 07:41 | Outpatient (CLI) | payer OTHER, SELFPAY ==
--- NOTE | 2019-02-18 07:53 | BI_ITS ---
MAMMOGRAPHY - BILATERAL SCREENING REASON FOR EXAM: Female, 48 years old. Routine annual screening examination. PERTINENT HISTORY: Non-contributory. TECHNIQUE: Digital bilateral breast cliff (3D mammographic acquisition) in the CC and MLO projections. 2-D mediolateral oblique (MLO) and craniocaudad (CC) views of both breasts were obtained. CAD: Full Field Digital Mammography with Computer Added Detection was performed. COMPARISON: Comparison is made with prior study dated February 08, 2018 and January 16, 2017. FINDINGS: Breast Composition: The breasts are almost entirely fatty. There are no dominant masses or suspicious calcifications. Stable appearance of the benign fat-containing left axillary lymph node. No other significant abnormalities are identified. There has been no significant change since the prior study. BI/SCREEN MAMM (CAD) W/CLIFF BILAT IMPRESSION: Stable bilateral screening mammogram. Yearly follow-up mammogram recommended. (A) ASSESSMENT CATEGORY: BIRADS Category 2: Benign. A letter regarding these results will be sent to the patient by the facility within 30 days. Approximately 10% of breast cancers are not detected by mammography. A normal mammogram should not delay biopsy of a clinically suspicious abnormality. [id number] Electronically Signed: Ck Peacock, at 8:47 EDT , Service support ,
== END ==
PROVIDERS: Family Provider Family Medicine; PCP Family Medicine; Referring Provider Obstetrics & Gynecology; Visit Provider Obstetrics & Gynecology
DX: Z12.31 Encounter for screening mammogram for malignant neoplasm of breast (principal)
CPT/HCPCS: 77063; 77067

== ENCOUNTER 2022-06-05 15:59 | Emergency (ER) | payer BC, SELFPAY ==
[2022-06-05 16:00] VITALS: BP 127/67; PULSE 78; RESP 13; TEMP 36.2; O2SAT 98; BMI 46.3
--- NOTE | 2022-06-05 16:13 | EDS_ITS ---
HPI History of Present Illness Chief Complaint: Chest Pain Narrative Narrative: Patient presents with chest pain that started earlier today, it is retrosternal, she has some slight back pain with that. All these pains seem to be worse when she twists or turns. She has no pleuritic component. She has no fevers or chills. No cough or congestion. She has no neck pain or radiation to her neck. No palpitations or syncope. No lower extremity edema or calf pain or signs or symptoms of DVT. [facility] Medical History Anxiety and depression Hypertension Neuroendocrine cancer Home Medications buspirone 10 mg tablet 10 mg PO TID PRN PRN Anxiety 12/21/15 [History Last Taken 02/04/16 09:30] lisinopril 5 mg tablet 10 mg PO QHS bp 12/21/15 [History Last Taken Unknown] citalopram 20 mg tablet 30 mg PO QHS depression 03/15/18 [History Last Taken Unknown] docusate sodium 100 mg capsule 100 mg PO BID PRN PRN Constipation #60 caps 03/22/18 [Rx Last Taken Unknown] estradiol 1 mg tablet 1 mg PO DAILY #100 tabs 03/22/18 [Rx Last Taken Unknown] enoxaparin 40 mg/0.4 mL subcutaneous syringe 40 mg PO DAILY 05/21/18 [History Last Taken Unknown] oxycodone 5 mg tablet 5 mg PO Q4H PRN PRN Pain 05/21/18 [History Last Taken Unknown] hydrochlorothiazide 25 mg tablet mg 06/05/22 [History Last Taken Unknown] Allergy/AdvReac Type Severity Reaction Status Date / Time No Known Allergies Allergy Verified 06/05/22 16:03 Family History Other CVA (cerebral vascular accident) Diabetes Surgical History History of appendectomy History of bowel resection History of section History of cholecystectomy History of esophagogastroduodenoscopy (EGD) History of foot surgery history of heart ablation History of hysterectomy Hx of colonoscopy Social History Smoking Status: Former smoker alcohol intake: current alcohol intake frequency: holidays/special occasions only ROS ROS ED ROS Narrative Past medical history: Reviewed Medications: Reviewed Social history: Noncontributory Review of systems: All systems negative except as indicated General: No fever Eyes: No visual changes ENT: No upper airway congestion, normal voice Neck: No neck pain Cardiovascular: Chest pain as in HPI Respiratory: No shortness of breath or cough Gastrointestinal: No abdominal pain, nausea vomiting or diarrhea Genitourinary: No dysuria Musculoskeletal: Denies myalgias no difficulty with ambulation Skin: No rash Neurological: No memory loss, confusion or any focal weakness Psych: No recent behavioral changes Hematologic: No easy bleeding or easy bruising EXAM Physical Exam Narrative Exam Narrative: Physical exam General: Well nourished, Well developed, No Acute Distress Head: Normocephalic, Atraumatic Eyes: Conjunctiva not pale ENT: Moist mucous membranes Neck: Supple, Nontender, No lymphadenopathy Cardiovascular: Regular rate, Regular rhythm Chest wall: I can reproduce some of her anterior chest wall pain as well as paraspinal bilateral thoracic back pain. Respiratory: No distress, CTA bilaterally Abdomen: Soft, Nontender, Nondistended Back: Nontender, Normal Inspection. Negative for: CVA tenderness Extremities: Nontender, No edema Skin: Normal color, No rash Neurological: Alert, Normal Strength, Normal Sensation Psychological: Normal affect Const Vital Signs: 06/05/22 16:00 06/05/22 16:06 06/05/22 17:00 Temperature 97.1 F L Temperature Source Temporal Pulse Rate 78 66 Respiratory Rate 13 17 Respiratory Effort Normal Non-Labored Blood Pressure 127/67 H 108/65 Blood Pressure Mean 87 79 Pulse Ox 98 97 Oxygen Delivery Method Room Air Room Air 06/05/22 18:00 Temperature Temperature Source Pulse Rate 64 Respiratory Rate 21 H Respiratory Effort Blood Pressure 111/70 Blood Pressure Mean 83 Pulse Ox 96 Oxygen Delivery Method Room Air MDM MDM MDM Narrative Medical decision making narrative: Patient's work-up is unremarkable. She has a low heart score of 2. There is no signs or symptoms of thromboembolic disease. She appears well. She is anxious I did talk to her about this she can take her home medications I do not believe she needs benzodiazepines in the emergency department. I believe she is stable for discharge. If anything changes she is to return. A. Problems addressed chest pain Anxiety (2 out of 3) 1. Any 3 Troponin is negative CBC and CMP are unremarkable. I discussed the patient with her daughter who was in the room 2. Independent interpretation of test Telemetry: Sinus rhythm with a rate in the 60s and 70s without ectopy. 3. Discussion of management with external healthcare provider C. Patient was seen by me in the emergency department. I have considered the following differential diagnoses however I was able to exclude all of these through a thorough history and physical exam as well as laboratory testing: PE o r any thromboembolic etiologies, myocardial infarction, aortic dissection, esophageal rupture, pneumothorax, musculoskeletal emergencies, upper abdominal pathologies such as pancreatitis, cholecystitis or choledocholithiasis, as well as ruptured bowel. I considered admission but after discussion with the patient we came to a mutual agreement that the patient is stable for discharge due to the following reasons: Heart score is: 2 PERC: Is negative Patient's exam is normal. History and physical point towards noncardiac, none thromboembolic and nonemergent etiologies. The following treatments were considered: Patient can take Tylenol at home for pain and she can take her home anxiety and depression medications. Lab Data Labs: Laboratory Results - last 24 hr 06/05/22 06/05/22 16:05 16:05 WBC 11.6 H RBC 4.15 L Hgb 12.8 Hct 38.5 MCV 92.8 MCH 30.8 MCHC 33.2 RDW Std Deviation 43.4 RDW Coeff of Franko 12.8 Plt Count 310 MPV 10.7 Immature Gran % (Auto) 0.500 Neut % (Auto) 62.7 Lymph % (Auto) 28.2 Mobile % (Auto) 7.2 Eos % (Auto) 0.5 Baso % (Auto) 0.9 Absolute Neuts (auto) 7.3 Absolute Lymphs (auto) 3.27 Nucleated RBC % 0 Sodium 140 Potassium 3.5 Chloride 105 Carbon Dioxide 30.0 Anion Gap 5 BUN 16 Creatinine 1.08 H Estim Creat Clear Calc 49.84 Est GFR (MDRD) Af Amer 69 Est GFR (MDRD) Non-Af 57 L BUN/Creatinine Ratio 14.8 Glucose 93 Calcium 9.5 Total Bilirubin 0.40 AST 18 ALT 28 Alkaline Phosphatase 85 Troponin I High Sens 4 Total Protein 7.7 Albumin 3.9 Globulin 3.8 Albumin/Globulin Ratio 1.0 Radiography Diagnostic Testing: Clinical Impression(s) from Imaging Studies Chest X-Ray 06/05/22 17:04 IMPRESSION: Degenerative changes, as described above. No demonstrated acute cardiopulmonary process. Electronically Signed: Murphy Shetty DO at 17:42 EST Reading Location ID and State: [facility] / [place] Tel [phone], Service support , Chest x-ray read by me and radiologist is unremarkable. EKG Initial EKG: Comments: Normal sinus rhythm with a rate of 69. Normal [place] and QTc intervals. No ischemic changes. Interpreted by emergency doctor. Discharge Plan Triage Chief Complaint: Chest Pain ED Provider: Teo Haynes Dx/Rx/DC Orders Clinical Impression: Chest pain, Back pain, Anxiety Instructions: ED Chest Pain, Noncardiac Prescriptions: No Action buspirone 10 MG tablet 10 mg PO TID PRN PRN (Reason: Anxiety) Label Comments: TAKE 1 TABLET 3 TIMES A DAY NEEDED lisinopril 5 MG tablet 10 mg PO QHS Label Comments: TAKE 1 TABLET BY MOUTH EVERY DAY citalopram 20 MG tablet 30 mg PO QHS docusate sodium 100 MG capsule 100 mg PO BID PRN PRN (Reason: Constipation) Qty: 60 1RF estradiol 1 MG tablet 1 mg PO DAILY Qty: 100 4RF oxycodone 5 MG tablet 5 mg PO Q4H PRN PRN (Reason: Pain) enoxaparin 40 MG/0.4 ML syringe 40 mg PO DAILY hydrochlorothiazide 25 mg tablet Label Comments: TAKE 1 TABLET BY MOUTH EVERY DAY Primary Care Provider: Charles Apple Referrals: Candelaria Rodriguez [employer], [employer] [Non-Staff] - 3-5 Days Disposition Disposition: Home, Self Care
--- NOTE | 2022-06-05 16:49 | EKG12_ITS ---
Test Reason : CP Blood Pressure : / mmHG Vent. Rate : 069 BPM Atrial Rate : 069 BPM P-R Int : 136 ms QRS Dur : 084 ms QT Int : 426 ms P-R-T Axes : 056 -07 019 degrees QTc Int : 456 ms Normal sinus rhythm Normal ECG Confirmed by JUSTIN MOELLER, JOSEPH ([id number]), research editor MELVIN LYNCH ([id number]) on 06/09/2022 12:29:27 PM Referred By: BB Confirmed By:JOSEPH ANDERSON MD
[2022-06-05 17:00] VITALS: BP 108/65; PULSE 66; RESP 17; O2SAT 97
--- NOTE | 2022-06-05 17:04 | RAD_ITS ---
STUDY: X-RAY CHEST REASON FOR EXAM: Female, 51 years old. Nausea and vomiting. Chest pain and burning. Pain in the upper back between shoulder blades. TECHNIQUE: Single AP portable view of the chest. COMPARISON: None. FINDINGS: The lungs are clear and expanded. There is no demonstrated pleural abnormality. Normal size heart. Normal mediastinum and aries. Normal visualized pulmonary arteries. Normal visualized aortic arch and descending thoracic aorta. There are diffuse degenerative changes of the visualized thoracic spine. Normal visualized ribs, clavicles, and shoulders. There is no demonstrated abnormality of the visualized soft tissue structures of the upper abdomen. RAD/Chest 1 View (Portable) IMPRESSION: Degenerative changes, as described above. No demonstrated acute cardiopulmonary process. Electronically Signed: Murphy Shetty DO at 17:42 EST ,
[2022-06-05 17:09] LABS: Absolute Lymphocyte Count 3.27 X10^3/uL (0.83-4.51); Absolute Neutrophil Count 7.3 X10^3/uL (2.0-7.7); Basophil% 0.9 % (0-1); Eosinophil# 0.06 X10^3/uL; Eosinophils% 0.5 % (0-5); Hematocrit 38.5 % (37-47); Hemoglobin 12.8 g/dL (12.0-15.0); Lymphocyte # 3.27 X10^3/ul (0.83-4.51); Lymphocyte % 28.2 % (19-41); Mean Corp Hgb Conc 33.2 g/dL (32-36); Mean Corpuscular Hgb 30.8 pg (27.0-32.0); Mean Corpuscular Volume 92.8 fL (81-99); Mean Platelet Vol. 10.7 fl (6.2-12.0); Monocyte# 0.84 X10^3/uL; Monocyte% 7.2 % (0-10); NRBC Flagged by Analyzer 0 % (0-5); Neutrophil # 7.27 X10^3/uL (2.7-7.7); Neutrophil % 62.7 % (47-70); Platelet Count 310 K/mm3 (150-450); RBC Distribution Width CV 12.8 % (11.6-14.6); RBC Distribution Width SD 43.4 fl (35.1-43.9); Red Blood Count 4.15 M/mm3 (4.2-5.4); White Blood Count 11.6 K/mm3 (4.4-11.0)
[2022-06-05 17:30] LABS: AST(SGOT) 18 U/L (15-37); Alanine Aminotransfer ALT/SGPT 28 U/L (13-56); Albumin, Serum 3.9 g/dL (3.2-5.0); Alkaline Phosphatase 85 U/L (45-117); Anion Gap 5 (5-15); BUN 16 mg/dL (7-18); BUN/Creat Ratio 14.8 RATIO (10-20); Calcium,Total 9.5 mg/dL (8.5-10.1); Chloride 105 mmol/L (98-107); Creatinine, Serum 1.08 mg/dL (0.55-1.02); EST Glomerular Filtration Rate 57 mL/min (>60); Est Glom Filt Rate - Afr Amer 69 mL/min (>60); Estimated Creatinine Clearance 49.84 ml/min; Globulin 3.8 g/dL (2.2-4.2); Glucose 93 mg/dL (74-106); Potassium 3.5 mmol/L (3.5-5.1); Protein, Total 7.7 g/dL (6.4-8.2); Sodium Level 140 mmol/L (136-145); Troponin-I HS 4 pg/mL (3.0-54.0)
[2022-06-05 18:00] VITALS: BP 111/70; PULSE 64; RESP 21; O2SAT 96
--- NOTE | 2022-06-05 18:31 | ED.RN ---
PT REQUEST PAIN MEDICATION FOR BACK PAIN, DR KABA AWARE AT TIME
[2022-06-05 19:11] VITALS: BP 116/80; PULSE 71
== END 2022-06-05 19:12 | disposition home or self-care (01) ==
PROVIDERS: Emergency Provider Emergency Medicine; PCP Family Medicine; Visit Provider Emergency Medicine
DX: R07.9 Chest pain, unspecified (principal); M54.9 Dorsalgia, unspecified; I10 Essential (primary) hypertension; F41.9 Anxiety disorder, unspecified; Z87.891 Personal history of nicotine dependence
CPT/HCPCS: 71045; 80053; 84484; 85025; 93005; 99282; A4216

== ENCOUNTER 2023-09-22 18:22 | Emergency (ER) | payer BC, SELFPAY ==
[2023-09-22 18:22] VITALS: BP 157/74; PULSE 84; RESP 17; TEMP 37; O2SAT 98; BMI 43.7
--- NOTE | 2023-09-22 19:10 | EX.ED.DYSGE1 ---
HPI History of Present Illness Chief Complaint: Dizziness Detail of Chief Complaint: Dizziness which is described as lightheadedness and multiple symptoms Informant: patient Onset/Context/Timing Onset: Today (Dizziness, retro-orbital discomfort) and Month(s) (Intermittent colicky/crampy abdominal pain) Context: Gradual Onset Timing: Continuous (Headache has been constant.) and Intermittent (Orthostatic lightheadedness and abdominal pain has been intermittent for 1 to 2 weeks.) Quality: Per HPI narrative Location: Per HPI narrative Current Severity: Mild Maximum Severity: Moderate Worsened by: Sonophobia and photophobia, abdominal pain unknown Relieved by: Nothing for all Associated Symptoms Associated Symptoms: Nausea without vomiting Narrative Narrative: Patient is a 53-year-old woman with history of carcinoid of the appendix, uterine cancer, and bowel cancer. Patient is status post appendectomy, cholecystectomy and hysterectomy. She also had to have bowel resection with colostomy for 6 months. She contacted her doctor. She has a constellation of symptoms. The abdominal pain has been intermittent every 1 to 2 weeks more recently. This been going on for some time. This has been evaluated by her doctor with no known cause at this time. She denies change in color, consistency or caliber of her stool. She denies dysuria, frequency, urgency or hematuria. Patient complains of 5 full head pain. She has retro-orbital pressure. She does report sonophobia. Denies double vision, blurred vision, change in vision or loss of vision. She does report roaring in her ears. She denies decreased hearing. She denies sore throat. She does have mild congestion. She has dental pain. She denies neck pain or neck stiffness. She denies cardiac or respiratory symptoms. There is no history of trauma. She has noted no skin lesions. Prior similar symptoms: No Recent Illness/Hospitalization: Yes [facility] Medical History Anxiety and depression Hypertension Neuroendocrine cancer no medical history (And see HPI narrative) Home Medications buspirone 10 mg tablet 10 mg PO TID PRN PRN Anxiety 12/21/15 [History Last Taken 02/04/16 09:30] lisinopril 5 mg tablet 10 mg PO QHS bp 12/21/15 [History Last Taken Unknown] citalopram 20 mg tablet 30 mg PO QHS depression 03/15/18 [History Last Taken Unknown] docusate sodium 100 mg capsule 100 mg PO BID PRN PRN Constipation #60 caps 03/22/18 [Rx Last Taken Unknown] estradiol 1 mg tablet 1 mg PO DAILY #100 tabs 03/22/18 [Rx Last Taken Unknown] enoxaparin 40 mg/0.4 mL subcutaneous syringe 40 mg PO DAILY 05/21/18 [History Last Taken Unknown] oxycodone 5 mg tablet 5 mg PO Q4H PRN PRN Pain 05/21/18 [History Last Taken Unknown] hydrochlorothiazide 25 mg tablet mg 06/05/22 [History Last Taken Unknown] Allergy/AdvReac Type Severity Reaction Status Date / Time No Known Allergies Allergy Verified 09/22/23 18:24 Family History Other CVA (cerebral vascular accident) Diabetes Surgical History History of appendectomy History of bowel resection History of section History of cholecystectomy History of esophagogastroduodenoscopy (EGD) History of foot surgery history of heart ablation History of hysterectomy Hx of colonoscopy Social History Smoking Status: Former smoker alcohol intake: current alcohol intake frequency: holidays/special occasions only ROS ROS ED Constitutional Constitutional ED: Denies chills, fever(s), subjective, sweats or weight loss Eyes Eyes: Reports other Details: Retro-orbital pressure ; Denies blurry vision, change in vision or diplopia ENT ENT ED: Denies ear pain Cardiovascular Cardiovascular: Denies chest pain or palpitations Respiratory/Chest Respiratory/Chest: Denies cough, dyspnea or dyspnea on exertion Gastrointestinal Gastrointestinal: Reports abdominal pain and nausea; Denies constipation, diarrhea, melena or vomiting Genitourinary Genitourinary ED: Denies dysuria, hematuria or urinary frequency Musculoskeletal Musculoskeletal: Denies arthralgias, back pain or myalgias Integumentary Denies rash Neurologic Neurologic: Reports headache(s); Denies paresthesias or weakness Psychiatric Psychiatric: Denies anxiety Endocrine Endocrinology: Denies cold intolerance or heat intolerance Hematologic/Lymphatic Hematologic/Lymphatic: Reports systems reviewed and no addt'l complaints, except as documented EXAM Physical Exam Const Vital Signs: 09/22/23 18:22 09/22/23 19:26 09/22/23 19:29 Temperature 98.6 F Temperature Source Temporal Pulse Rate 84 Pulse Rate [Lying] 70 Pulse Rate [Sitting (for 1 minute prior to obtaining)] 71 Pulse Rate [Standing (for 1 minute prior to obtaining)] 85 Respiratory Rate 17 Respiratory Effort Normal Respiratory Pattern Normal Blood Pressure 157/74 H Blood Pressure [Lying] 151/80 H Blood Pressure [Sitting (for 1 minute prior to obtaining)] 160/89 H Blood Pressure [Standing (for 1 minute prior to obtaining)] 142/84 H Blood Pressure Mean 101 Blood Pressure Mean [Lying] 103 Blood Pressure Mean [Sitting (for 1 minute prior to obtaining)] 112 Blood Pressure Mean [Standing (for 1 minute prior to obtaining)] 103 Pulse Ox 98 Oxygen Delivery Method Room Air 09/22/23 20:22 Temperature Temperature Source Pulse Rate 83 Pulse Rate [Lying] Pulse Rate [Sitting (for 1 minute prior to obtaining)] Pulse Rate [Standing (for 1 minute prior to obtaining)] Respiratory Rate 24 H Respiratory Effort Respiratory Pattern Blood Pressure 123/66 H Blood Pressure [Lying] Blood Pressure [Sitting (for 1 minute prior to obtaining)] Blood Pressure [Standing (for 1 minute prior to obtaining)] Blood Pressure Mean 85 Blood Pressure Mean [Lying] Blood Pressure Mean [Sitting (for 1 minute prior to obtaining)] Blood Pressure Mean [Standing (for 1 minute prior to obtaining)] Pulse Ox 96 Oxygen Delivery Method Room Air Positive well nourished, well developed and obese General Appearance ED: well developed and NAD Nutritional Appearance: obese HEENT Reports dry mucous membranes HEENT Narrative: Head is atraumatic no cephalic. Ears normal. TMs normal. Nares patent. Posterior pharynx out erythema or exudate. Uvula midline. No deviation of a protrusion. Mouth ED: Yes dry mucous membranes Mouth: dry mucous membranes Eyes PERRL and EOMs intact bilaterally Eyes Narrative: There is no nystagmus. General Eye ED: Negative for pale conjunctiva or scleral icterus Neck no lymphadenopathy, supple and no JVD Resp normal respiratory effort and clear to auscultation bilaterally Cardio regular rate, regular rhythm, S1 normal heart sound, S2 normal heart sound and no murmurs GI normal to inspection, nondistended, normoactive bowel sounds, non-tender, non-distended and no masses; Negative for hepatosplenomegaly Extremity normal to inspection General Extremety ED: Negative for edema or tenderness General Extremity: Negative for edema Neuro oriented x3, CN's II-XII intact bilaterally and no sensory deficits noted Neuro Narrative: There is no dysmetria. DTRs bicep, brachialis, patella and ankle are 1+ and symmetric. There is no clonus or Babinski sign noted. Sensorium / Orientation: alert Motor Exam: strength 5/5 throughout Psych Mood & Affect: depressed Skin no rashes or lesions noted, no wounds and skin turgor normal General Skin Exam: Negative for elasticity normal or jaundice MDM MDM MDM Narrative Medical decision making narrative: Patient may have a vascular headache with complaint of sonophobia, photophobia. Will treat with Benadryl, Toradol and Reglan. Clinically patient does not have a sinus infection. With a normal neurologic exam and no history of abrupt onset of headache there is no concern for subarachnoid hemorrhage. She has no meningeal findings and there is no concern for meningitis. Patient's blood pressure is elevated however this would not be the cause of her headache. She admits that her doctor discontinued one of her blood pressure meds because she has been running low and there is been some difficulty in regulating it. Lab Data Attestation: I reviewed the patient's lab results. Lab results narrative: CBC is normal. Comprehensive metabolic panel reveals a slightly elevated creatinine of 1.2 with an estimated GFR of 50. Liver enzymes normal. Labs: Laboratory Results - last 24 hr 09/22/23 19:25 WBC 8.8 RBC 4.00 L Hgb 12.2 Hct 37.5 MCV 93.8 MCH 30.5 MCHC 32.5 RDW Std Deviation 43.5 RDW Coeff of Franko 12.6 Plt Count 258 MPV 10.6 Immature Gran % (Auto) 0.500 Neut % (Auto) 66.4 Lymph % (Auto) 20.5 Clare % (Auto) 10.7 H Eos % (Auto) 0.9 Baso % (Auto) 1.0 Absolute Neuts (auto) 5.9 Absolute Lymphs (auto) 1.80 Nucleated RBC % 0 Sodium 138 Potassium 4.0 Chloride 104 Carbon Dioxide 30.0 Anion Gap 4 L BUN 16 Creatinine 1.20 H Estim Creat Clear Calc 64.36 Est GFR (MDRD) Af Amer 61 Est GFR (MDRD) Non-Af 50 L BUN/Creatinine Ratio 13.3 Glucose 98 Calcium 9.2 Total Bilirubin 0.40 AST 19 ALT 27 Alkaline Phosphatase 93 Total Protein 7.5 Albumin 3.9 Globulin 3.6 Albumin/Globulin Ratio 1.1 Treatment and Re-Evaluation :: Patient was informed of lab results. She was informed to follow-up with her doctor to have her kidney function reassessed. Patient's blood pressure has improved. Discharge Plan Triage Chief Complaint: Dizziness ED Provider: Ruslan Zaragoza Dx/Rx/DC Orders Clinical Impression: Orthostatic lightheadedness, Acute renal insufficiency, Elevated blood-pressure reading, without diagnosis of hypertension, Abdominal pain of unknown cause Instructions: ED Hypertension, To Be Confirmed, ED Renal Insufficiency Prescriptions: No Action buspirone 10 MG tablet 10 mg PO TID PRN PRN (Reason: Anxiety) Patient Comments: TAKE 1 TABLET 3 TIMES A DAY NEEDED lisinopril 5 MG tablet 10 mg PO QHS Patient Comments: TAKE 1 TABLET BY MOUTH EVERY DAY citalopram 20 MG tablet 30 mg PO QHS docusate sodium 100 MG capsule 100 mg PO BID PRN PRN (Reason: Constipation) Qty: 60 1RF estradiol 1 MG tablet 1 mg PO DAILY Qty: 100 4RF oxycodone 5 MG tablet 5 mg PO Q4H PRN PRN (Reason: Pain) enoxaparin 40 MG/0.4 ML syringe 40 mg PO DAILY hydrochlorothiazide 25 mg tablet Patient Comments: TAKE 1 TABLET BY MOUTH EVERY DAY Primary Care Provider: Charles Apple Referrals: Charles Apple MD [Primary Care Provider] - 1-2 Weeks Disposition Disposition: Home, Self Care
[2023-09-22] MEDS: DiphenhydrAMINE 50 MG/ML Syringe 25 MG IV (19:22)
[2023-09-22] MEDS: Ketorolac 15 MG/ML Vial IV (19:23)
[2023-09-22] MEDS: Metoclopramide 10 MG/2 ML Vial IV (19:24)
[2023-09-22 19:26] VITALS: BP 142/84; BP 151/80; BP 160/89; PULSE 70; PULSE 71; PULSE 85
[2023-09-22 19:52] LABS: Absolute Neutrophil Count 5.9 X10^3/uL (2.0-7.7); Basophil# 0.09 X10^3/uL; Eosinophil# 0.08 X10^3/uL; Eosinophils% 0.9 % (0-5); Hematocrit 37.5 % (37-47); Hemoglobin 12.2 g/dL (12.0-15.0); Lymphocyte % 20.5 % (19-41); Mean Corp Hgb Conc 32.5 g/dL (32-36); Mean Corpuscular Hgb 30.5 pg (27.0-32.0); Mean Corpuscular Volume 93.8 fL (81-99); Mean Platelet Vol. 10.6 fl (6.2-12.0); Monocyte# 0.94 X10^3/uL; Monocyte% 10.7 % (0-10); NRBC Flagged by Analyzer 0 % (0-5); Neutrophil # 5.85 X10^3/uL (2.7-7.7); Neutrophil % 66.4 % (47-70); Platelet Count 258 K/mm3 (150-450); RBC Distribution Width CV 12.6 % (11.6-14.6); RBC Distribution Width SD 43.5 fl (35.1-43.9); White Blood Count 8.8 K/mm3 (4.4-11.0)
[2023-09-22 19:56] LABS: ALB/GLOB Ratio 1.1 RATIO (0.9-2.4); AST(SGOT) 19 U/L (15-37); Alanine Aminotransfer ALT/SGPT 27 U/L (13-56); Albumin, Serum 3.9 g/dL (3.2-5.0); Alkaline Phosphatase 93 U/L (45-117); Anion Gap 4 (5-15); BUN 16 mg/dL (7-18); BUN/Creat Ratio 13.3 RATIO (10-20); Calcium,Total 9.2 mg/dL (8.5-10.1); Chloride 104 mmol/L (98-107); EST Glomerular Filtration Rate 50 mL/min (>60); Est Glom Filt Rate - Afr Amer 61 mL/min (>60); Estimated Creatinine Clearance 64.36 ml/min; Globulin 3.6 g/dL (2.2-4.2); Glucose 98 mg/dL (74-106); Protein, Total 7.5 g/dL (6.4-8.2); Sodium Level 138 mmol/L (136-145)
[2023-09-22 20:22] VITALS: BP 123/66; PULSE 83; RESP 24; O2SAT 96
[2023-09-22 22:09] VITALS: BP 128/67; PULSE 84; RESP 22; TEMP 36.3; O2SAT 98
== END 2023-09-22 22:12 | disposition home or self-care (01) ==
PROVIDERS: Emergency Provider Emergency Medicine; PCP Family Medicine; Visit Provider Emergency Medicine
DX: G44.1 Vascular headache, not elsewhere classified (principal); Z93.3 Colostomy status; R10.9 Unspecified abdominal pain; R11.0 Nausea; R42 Dizziness and giddiness; N28.9 Disorder of kidney and ureter, unspecified; Z87.891 Personal history of nicotine dependence; Z90.89 Acquired absence of other organs; Z85.42 Personal history of malignant neoplasm of other parts of uterus; Z85.89 Personal history of malignant neoplasm of other organs and systems; Z90.49 Acquired absence of other specified parts of digestive tract; Z90.710 Acquired absence of both cervix and uterus; I10 Essential (primary) hypertension; F41.8 Other specified anxiety disorders; Z79.899 Other long term (current) drug therapy
CPT/HCPCS: 80053; 85025; 96374; 96375; 99285; A4216